=== PATIENT | male | born 2000 ===

== ENCOUNTER 2021-04-27 14:58 | Emergency (ER) | payer MEDICAID ==
[~2021-04-27] VITALS: Ht 177.8 cm; Wt 105.0 kg
[2021-04-27] MEDS ORDERED: CIPR1DRO2 LEFT EAR (18:34)
[2021-04-27] MEDS ORDERED: IBUP-2029 PO (18:34)
[2021-04-27] MEDS ORDERED: CEPH500T PO (18:34)
[2021-04-27 18:58] VITALS: BP 127/84
== END 2021-04-27 18:59 | disposition home or self-care (01) ==
LOC: ER 14:58
DX: T16.1XXA Foreign body in right ear, initial encounter (principal); H60.92 Unspecified otitis externa, left ear; X58.XXXA Exposure to other specified factors, initial encounter; Y93.89 Activity, other specified; Y92.89 Other specified places as the place of occurrence of the external cause; Y99.8 Other external cause status
CPT/HCPCS: 69200; 99284